=== PATIENT | male | born 1950 | race Caucasian/White ===

== ENCOUNTER → 2017-03-28 15:25 | Outpatient (CLI) | payer BC, SELFPAY ==
[2017-03-28 17:57] LABS: Absolute Lymphocyte Count 0.59 X10^3/ul (0.83-4.51); Absolute Neutrophil Count 3.6 X10^3/uL (2.0-7.7); Basophil# 0.02 X10^3/uL; Basophil% 0.4 % (0-1); Eosinophil# 0.12 X10^3/uL; Eosinophils% 2.5 % (0-5); Hemoglobin 13.8 g/dl (13.0-16.5); Lymphocyte # 0.59 X10^3/ul (4.0); Lymphocyte % 12.3 % (19-41); Mean Corp Hgb Conc 33.7 g/gl (32-36); Mean Corpuscular Hgb 29.7 pg (27.0-32.0); Mean Corpuscular Volume 88.2 fL (80-94); Mean Platelet Vol. 10.7 fl (6.2-12.0); Monocyte# 0.47 X10^3/uL; Monocyte% 9.8 % (0-10); Neutrophil # 3.58 X10^3/uL (2.7-7.7); Neutrophil % 74.8 % (47-70); Platelet Count 216 K/mm3 (150-450); RBC Distribution Width CV 14.3 % (11.6-14.6); RBC Distribution Width SD 45.8 fl (35.1-43.9); Red Blood Count 4.65 M/mm3 (4.6-6.2); White Blood Count 4.8 K/mm3 (4.4-11.0)
[2017-03-28 18:04] LABS: Differential Indicated SCAN CRITERIA MET; POSITIVE COUNT NO; POSITIVE DIFFERENTIAL YES; POSITIVE MORPHOLOGY NO
[2017-03-28 18:15] LABS: ALB/GLOB Ratio 1.2 RATIO (0.9-2.4); AST(SGOT) 16 U/L (15-37); Alanine Aminotransfer ALT/SGPT 29 U/L (16-61); Albumin, Serum 3.7 g/dL (3.2-5.0); Alkaline Phosphatase 62 U/L (45-117); Anion Gap 8 (5-15); BUN 13 mg/dL (7-18); BUN/Creat Ratio 15.6 RATIO (10-20); Calcium,Total 8.6 mg/dL (8.5-10.1); Chloride 106 mmol/L (98-107); Cholesterol 173 mg/dL (200); Creatinine, Serum 0.83 mg/dL (0.70-1.30); EST Glomerular Filtration Rate 98 mL/min (>60); Est Glom Filt Rate - Afr Amer 119 mL/min (>60); Globulin 3.2 g/dL (2.2-4.2); Glucose 82 mg/dL (70-110); High Density Lipoprotein 53 mg/dL; Potassium 3.6 mmol/L (3.5-5.1); Protein, Total 6.9 g/dL (6.4-8.2); Sodium Level 141 mmol/L (136-145); Triglycerides 56 mg/dL; Very Low Density Lipoprotein 11 mg/dL (5-40)
[2017-03-28 18:34] LABS: Platelet Estimate ADEQUATE (ADEQ); Red Cell Morphology NORM C+C NORMAL (NORM C&C)
== END ==
LOC: LAB.FUTURE 09-28 01:56 → BFHLAB 10-25 09:44
PROVIDERS: Family Provider Family Medicine; PCP Family Medicine; Visit Provider Family Medicine
DX: Z00.00 Encounter for general adult medical examination without abnormal findings (principal); Z12.5 Encounter for screening for malignant neoplasm of prostate
CPT/HCPCS: 36415; 80053; 80061; 85025

== ENCOUNTER → 2018-04-24 11:26 | Outpatient (CLI) | payer MEDICARE, OTHER, SELFPAY ==
[2018-04-24 11:35] LABS: Bacteria 0 SEEN /hpf (None Seen); Mucous, Urine 0 SEEN /hpf (<or=2+); Red Blood Cells-Urine 0 SEEN /hpf (0-5); Squamous Epithelial Cells - UA 0 SEEN /hpf (0-5); White Blood Cells 0 SEEN /hpf (0-5)
[2018-04-24 15:18] LABS: Absolute Lymphocyte Count 0.73 X10^3/ul (0.83-4.51); Absolute Neutrophil Count 4.9 X10^3/uL (2.0-7.7); Basophil# 0.02 X10^3/uL; Basophil% 0.3 % (0-1); Eosinophil# 0.03 X10^3/uL; Eosinophils% 0.5 % (0-5); Lymphocyte # 0.73 X10^3/ul (4.0); Lymphocyte % 11.8 % (19-41); Mean Corp Hgb Conc 31.9 g/gl (32-36); Mean Corpuscular Hgb 28.8 pg (27.0-32.0); Mean Corpuscular Volume 90.4 fL (80-94); Mean Platelet Vol. 10.9 fl (6.2-12.0); Monocyte# 0.48 X10^3/uL; Monocyte% 7.8 % (0-10); Neutrophil # 4.92 X10^3/uL (2.7-7.7); Neutrophil % 79.6 % (47-70); Platelet Count 228 K/mm3 (150-450); RBC Distribution Width CV 14.4 % (11.6-14.6); RBC Distribution Width SD 47.4 fl (35.1-43.9); White Blood Count 6.2 K/mm3 (4.4-11.0)
[2018-04-24 15:36] LABS: ALB/GLOB Ratio 1.1 RATIO (0.9-2.4); AST(SGOT) 18 U/L (15-37); Alanine Aminotransfer ALT/SGPT 31 U/L (16-61); Albumin, Serum 3.9 g/dL (3.2-5.0); Alkaline Phosphatase 66 U/L (45-117); Anion Gap 9 (5-15); BUN 14 mg/dL (7-18); BUN/Creat Ratio 14.5 RATIO (10-20); Chloride 107 mmol/L (98-107); Cholesterol 198 mg/dL (200); Creatinine, Serum 0.97 mg/dL (0.70-1.30); EST Glomerular Filtration Rate 83 mL/min (>60); Est Glom Filt Rate - Afr Amer 100 mL/min (>60); Globulin 3.4 g/dL (2.2-4.2); Glucose 92 mg/dL (74-106); High Density Lipoprotein 59 mg/dL; Potassium 3.7 mmol/L (3.5-5.1); Protein, Total 7.3 g/dL (6.4-8.2); Sodium Level 144 mmol/L (136-145); Thyroid Stim Hormone (TSH) 1.44 uIU/mL (0.358-3.74); Triglycerides 98 mg/dL; Very Low Density Lipoprotein 20 mg/dL (5-40)
[2018-04-24 15:40] LABS: POSITIVE COUNT NO; POSITIVE DIFFERENTIAL NO; POSITIVE MORPHOLOGY NO
[2018-04-24 16:06] LABS: Color, Urine Yellow (Yellow); Glucose, Dipstick Normal (Normal); Ketone-Dipstick Negative (Negative); Leukocyte Esterase-Dipstick Negative /ul (Negative); Nitrite-Dipstick Negative (Negative); Occult Blood-Urine 10 /ul (Negative); Protein-Dipstick Negative (Negative); Specific Gravity, Urine 1.015 (1.002-1.030); Urine Bilirubin Dipstick Negative (Negative); Urine Clarity Clear (Clear); Urine Urobilinogen Normal (Normal)
== END ==
PROVIDERS: Family Provider Family Medicine; PCP Family Medicine; Visit Provider Family Medicine
DX: R53.83 Other fatigue (principal); E78.5 Hyperlipidemia, unspecified; R35.1 Nocturia
CPT/HCPCS: 36415; 80053; 80061; 81001; 84443; 85025; 87086

== ENCOUNTER → 2018-08-30 06:23 | Outpatient (CLI) | payer MEDICARE, OTHER, SELFPAY ==
--- NOTE | 2018-08-30 06:32 | MRI_ITS ---
STUDY: MRI BRAIN WITH AND WITHOUT CONTRAST (ATTENTION INTERNAL AUDITORY CANALS - I.A.C.'s) REASON FOR EXAM: Male, 68 years old. ] Tendinitis TECHNIQUE: Standardized multiplanar fat and water weighted pulse sequences were obtained. 17 IV Dotarem was administered for the contrast portion of the examination. COMPARISON: None. FINDINGS: Normal bilateral temporal bones. Normal bilateral internal auditory canals. There is no demonstrated intracanalicular or cisternal vestibular schwannoma (acoustic neuroma). There is no enhancement of the bilateral VIIth or VIIIth cranial nerves. Normal bilateral cochlea, vestibules and semicircular canals. There is moderate cerebral atrophy with widening of the extra-axial spaces and ventricular dilatation. Normal white matter tracts of the supratentorial brain. There is no evidence for recent intracranial ischemia or other cause of cytotoxic edema on diffusion weighted imaging (DWI). Normal bilateral basal ganglia. Normal thalami. Normal flow voids within the major intracranial circulation suggesting patency by spin echo criteria. Normal venous enhancement. There is no enhancing intra-axial or extra-axial abnormality. There is no extra-axial fluid accumulation. Normal sella turcica, pituitary gland, infundibular stalk, optic chiasm and hypothalamus. Normal tectal plate and pineal gland. Normal midbrain, mario and medulla. Normal cerebellum. Normal basal cisterns. No demonstrated orbital abnormality, within the constraints of a routine brain study. Normal visualized paranasal sinuses. Normal calvarium and skull base. Normal visualized soft tissue structures. Normal visualized upper cervical spine. MRI/Brain W/WO Contrast IMPRESSION: Involutional changes of the brain, as described above. No MR evidence of vestibular schwannoma (acoustic neuroma). Electronically Signed: Preston Dela Cruz MD at 8:38 EDT Tel , Service support ,
[2018-08-30 06:55] LABS: EGFR FINGERSTICK > 60.0000 mL/min (>60)
== END ==
PROVIDERS: Family Provider Family Medicine; PCP Family Medicine; Referring Provider Otolaryngology Otolaryngology/Facial Plastic Surgery; Visit Provider Otolaryngology Otolaryngology/Facial Plastic Surgery
DX: H91.21 Sudden idiopathic hearing loss, right ear (principal); H93.11 Tinnitus, right ear
CPT/HCPCS: 70553; A9575

== ENCOUNTER 2018-11-24 06:21 | Day surgery (SDC) | payer MEDICARE, OTHER, SELFPAY ==
[2018-11-24] VITALS (8 sets, daily range): BP systolic 66–137; BP diastolic 49–98; PULSE 55–64; RESP 16; TEMP 35.7–36.4; O2SAT 97–100; BMI 26.2
[2018-11-24] MEDS: Lactated Ringers 1,000 ML 100 ML IV (07:14)
--- NOTE | 2018-11-24 07:30 | COLBX_PTH ---
PATIENT: JOHN ARELLANO LOC: EN U#:[id number] AGE/SX: 68/M ROOM: RE11/24/[address]: Dr. Sanju Beauchamp MD : 1950 BED: DIS: 11/24/2018 SPEC #: [id number] RECD: 11/24/18 10:07 STATUS: JAXON ADE #: [id number] FERN: 11/24/18 07:[address]: Sanju Beauchamp DEPT: SURGICAL PATHOLOGY RECD BY: Venancio Ferrer ENTERED: 11/24/18 11:57 SP TYPE: COLON BX OTHR DR: Dr. Bo Falcon DO Tissues: Transverse colon Procedures: Surgery Specimen Level IV HEADER OPERATION: Colonoscopy - open access (MOD) PRE-OP DIAGNOSIS: Screening TISSUE SUBMITTED: Distal transverse polyp MICROSCOPIC DIAGNOSIS Distal transverse colon polyp, biopsy: Fragments of tubular adenoma. AM:kathy 11/27/18 MICROSCOPIC DESCRIPTION Slides are reviewed. GROSS DESCRIPTION Received in fixative is one container labeled with the patient's name and designated distal transverse polyp. The specimen consists of multiple irregular fragments of light fajardo soft tissue that in aggregate measure 1 x 0.7 x 0.1 cm. The specimen is totally submitted in one cassette. / AM:kathy 11/24/18 TC:5 CPT: 93680
--- NOTE | 2018-11-24 07:34 | HP.PCM_ITS ---
Problem List (1) Personal history of colonic polyps Status: Acute History of Present Illness Date of Admission: 11/24/18 The patient is a 68 year old M who has a personal history of colon polyps. His most recent colonoscopy was October 22, 2016. He had colon polyp x3 and diverti culosis. Colonoscopy and snare polypectomy was performed. He had an 8 mm polyp in the proximal transverse colon and a 4 mm polyp in the mid transverse colon and a 4 mm polyp in the descending colon. Diverticulosis was identified as well. The patient had a previous colonoscopy April 26, 2016 with multiple polypectomies at that time. I recommended a short-term follow-up. The pathology on his most recent polyps were tubular adenoma focal adenomatous change and tubular adenoma. Past Medical History Allergies No Known Allergies Allergy (Verified 11/22/18 09:39) Home Medications: Ambulatory Orders Medication Instructions Recorded Ascorbic Acid [Vitamin C] 500 mg PO DAILY@0800 11/22/18 Calcium Carbonate [Calcium] 600 mg PO DAILY 11/22/18 Cider Vinegar [Apple Cider Vinegar] 600 mg PO DAILY 11/22/18 Cinnamon Bark [Cinnamon] 500 mg PO DAILY 11/22/18 Garlic 1,000 mg PO DAILY 11/22/18 Glucosam/Alonzo-Msm1/C/Nathan/Bosw 1 ea PO DAILY 11/22/18 [Osteo Bi-Flex Caplet] Hydrochlorothiazide [Hctz] 25 mg PO DAILY 11/22/18 Multivitamin [Multiple Vitamins] 1 ea PO DAILY 11/22/18 Potassium 99 mg PO DAILY 11/22/18 Smoking Status: Never smoker Tobacco Use: Non-smoker Review of Systems HEENT: Denies: Difficulty Swallowing Gastrointestinal: Denies: Abdominal Pain, Melena Musculoskeletal: Denies: Leg Pain Endocrine: Denies: Change in Body Habitus VTE Information - Inpt Only VTE Present on Admission: No Patient Problems: Active and Suspected Problems Personal history of colonic polyps (Acute) - Physical Exam General: Alert, Oriented x3, Cooperative, No apparent distress HEENT: Atraumatic Oral: Moist Mucosa Lungs: Clear to auscultation Cardiovascular: Regular rate, Regular Rhythm Abdomen: Bowel Sounds Present, Soft, Non Tender Extremities: No Calf Tenderness Vital Signs Temp Pulse Resp BP Pulse Ox 97.6 F L 58 L 16 136/84 H 100 11/24/18 07:02 11/24/18 07:02 11/24/18 07:02 11/24/18 07:02 11/24/18 07:02 Oxygen Delivery Method Room Air Weight: 187 lb 13.341 oz Body Mass Index (BMI) 26.2 Assessment/Plan All Active Problems Personal history of colonic polyps (Acute) I recommended the patient a surveillance colonoscopy secondary to the number of previous polyps removed. He has had an opportunity to ask and have questions answered. He is aware the potential for biopsy or polypectomy. He presents via our open access program today. Sanju Beauchamp M.D., F.A.C.S.
--- NOTE | 2018-11-24 08:01 | SUR.OPER ---
0758: BP LOW, PT. DIAPHORETIC, P.O. LOW. PT. PLACED IN TRENDELENBERG. O2 TURNED UP. PT. AROUSES WITH VIGOROUS STIMULATION FROM RN.
--- NOTE | 2018-11-24 08:03 | SUR.OPER ---
PT. RESTING QUIETLY. P.O. GOOD. SKIN DRY. BP BETTER.
--- NOTE | 2018-11-24 08:13 | OP.ENDO_ITS ---
11/24/2018 Bo Falcon [address] [place] [address] Re : Colonoscopy procedure for Hayder Kushal Dear Dr. Falcon This procedure was performed on Saturday, November 24, 2018. My impressions and recommendations are as follows: Impressions : - Hemorrhoids found on perianal exam. - Enlarged prostate found on digital rectal exam. - One 9 mm polyp in the distal transverse colon, removed with a hot snare. Resected and retrieved. - Diverticulosis in the sigmoid colon. Recommendations : - Discharge patient to home. - Resume previous diet. - Continue present medications. - Repeat colonoscopy in 3 years for surveillance based on pathology results. - Telephone my office for pathology results in 1 week. My findings are described in the full procedure note, which is enclosed. If I can be of further assistance, please feel free to contact me at Doctor phone number(s): Work: . Sincerely, Sanju Beauchamp MD 11/24/2018 8:12:41 AM This report has been signed electronically.
== END 2018-11-24 08:59 | disposition home or self-care (01) ==
LOC: EN 06:22 → AC 06:23
PROVIDERS: Family Provider Family Medicine; PCP Family Medicine; Referring Provider Family Medicine; Visit Provider Surgery
PROC: 0DJD8ZZ Inspection of Lower Intestinal Tract, Via Natural or Artificial Opening Endoscopic (ICD-10-PCS; CPT 45378; principal; 2018-11-24 07:25)
DX: D12.3 Benign neoplasm of transverse colon (principal); K64.9 Unspecified hemorrhoids; K57.30 Diverticulosis of large intestine without perforation or abscess without bleeding; N40.0 Benign prostatic hyperplasia without lower urinary tract symptoms; Z86.010 Personal history of colon polyps
CPT/HCPCS: 45385; 88305; 99152; 99153; J7120; J1610

== ENCOUNTER → 2018-11-29 07:58 | Outpatient (CLI) | payer MEDICARE, OTHER, SELFPAY ==
[2018-11-24 07:02] VITALS: BMI 26.2
[2018-11-29 10:07] LABS: PSA,Total - Annual Screen 0.02 ng/mL (0.00-4.00); Potassium 4.1 mmol/L (3.5-5.1)
== END ==
PROVIDERS: Family Provider Family Medicine; PCP Family Medicine; Referring Provider Otolaryngology Otolaryngology/Facial Plastic Surgery; Visit Provider Otolaryngology Otolaryngology/Facial Plastic Surgery
DX: Z79.899 Other long term (current) drug therapy (principal); Z12.5 Encounter for screening for malignant neoplasm of prostate
CPT/HCPCS: 36415; 84132; 84153; G0103

== ENCOUNTER → 2020-04-23 08:23 | Outpatient (CLI) | payer MEDICARE, OTHER, SELFPAY ==
[2018-11-24 07:02] VITALS: BMI 26.2
[2020-04-23 09:56] LABS: PSA,Total- Diagnostic 0.41 ng/mL (0.0-4.0)
== END ==
PROVIDERS: PCP Family Medicine; Referring Provider Family Medicine; Visit Provider Family Medicine
DX: Z85.46 Personal history of malignant neoplasm of prostate (principal)
CPT/HCPCS: 36415; 84153

== ENCOUNTER 2020-05-01 11:10 | Outpatient (RCR) | payer MEDICARE, OTHER, SELFPAY ==
[2018-11-24 07:02] VITALS: BMI 26.2
[2020-05-01] MEDS: COVID-19 VACC, MRNA(PFIZER)/PF 30 MCG/0.3 ML SYRINGE IM (09:09)
[2020-05-22] MEDS: COVID-19 VACC, MRNA(PFIZER)/PF 30 MCG/0.3 ML SYRINGE IM (08:50)
== END 2020-08-05 23:59 ==
LOC: IMMUN 11:10
PROVIDERS: PCP Family Medicine; Referring Provider Family Medicine; Visit Provider Family Medicine
DX: Z23 Encounter for immunization (principal)
CPT/HCPCS: 0001A; 0002A; 91300

== ENCOUNTER → 2020-11-04 12:55 | Outpatient (CLI) | payer MEDICARE, OTHER, SELFPAY | PROVIDERS: PCP Family Medicine; Visit Provider Family Medicine | DX: Z20.828 Contact with and (suspected) exposure to other viral communicable diseases (principal) | CPT/HCPCS: 87635; U0005; U0003 ==

== ENCOUNTER → 2022-04-16 | Outpatient (CLI) | payer MEDICARE, OTHER, SELFPAY ==
--- NOTE | 2022-04-16 11:45 | RAD_ITS ---
STUDY: X-RAY - RIGHT HAND REASON FOR EXAM: Male, 72 years old. Injury. Swelling. TECHNIQUE: 3 view(s) of the hand. COMPARISON: None. FINDINGS: Osteopenia. Mild arthrosis of the radiocarpal articulation. Mild arthrosis of the distal radioulnar joint. Mild arthrosis of the radial carpal row. Moderate arthrosis of the first CMC joint. Moderate arthrosis of the MCP and IP joints. Normal soft tissues. RAD/Hand Min 3 Views IMPRESSION: Osteopenia with diffuse osteoarthrosis as described. No acute abnormality, evidence of erosive changes or chondrocalcinosis. Electronically Signed: Mynor Godwin, at 9:43 EST ,
== END | disposition home or self-care (01) ==
LOC: MTRAD 11:43
PROVIDERS: PCP Family Medicine; Referring Provider Family Medicine; Visit Provider Family Medicine
DX: S69.91XA Unspecified injury of right wrist, hand and finger(s), initial encounter (principal)
CPT/HCPCS: 73130

== ENCOUNTER → 2022-08-26 | Outpatient (CLI) | payer MEDICARE, OTHER, SELFPAY ==
--- NOTE | 2022-08-26 12:52 | STEWCON_ITS ---
Reason For Study: PADILLA WITH EXERTION Stress Results Protocol: Kar Protocol WITH DEFINITY Maximum Predicted HR: 150 bpm Target HR: 128 bpm % Maximum Predicted HR: 91 % DurationHeart Rate Stage (mm:ss) (bpm) BP Comment BASELINE 69 140/823 CC DEF STAGE 1 3:00 105 148/88 STAGE 2 3:00 116 160/90 STAGE 3 3:00 136 174/88 RECOVERY 86 138/84 Stress Duration: 9:00 mm:ss Maximum Stress HR: 136 bpm Baseline Echocardiogram Findings Stress Echo Wall motion Data Resting WM Intermediate WM Stress WM Time Measurements MV dec time: 0.23 sec Doppler Measurements & Calculations MV E max el: 55.3 cm/sec MV dec slope: 250.9 cm/sec2 TR max el: 231.9 cm/sec MV A max el: 86.4 cm/sec TR max P.5 mmHg MV E/A: 0.64 ECHO/Stress Test Echo W/Contrast Interpretation Summary Stress echocardiogram. 72-year-old man with a history of dyspnea on exertion. Resting EKG demonstrates sinus rhythm with a rate of 65 bpm and a right bundle branch block resting blood pressure is 140/82 mmHg. The patient exercised according to regular Kar protocol for total duration of 9 minutes completing stage III of the Kar protocol the maximum he art rate attained 142 bpm present 94% of max impacted heart rate the maximum workload was 10.1 metabo lic equivalents. At rest there were no ST or T wave changes noted to suggest ischemia and at peak e xercise no ST or T wave changes were noted suggest ischemia. No angina was noted. Resting echocardiogram. The resting echocardiogram performed with and without D efinity demonstrated preserved left ventricular systolic function estimated EF of 55% at rest increa sing to a peak of 65% with exertion with no wall motion abnormalities noted E/A-wave ratio abnormalit y suggestive of diastolic dysfunction and mild tricuspid regurgitation. Conclusion: Stress echocardiogram demonstrating no evidence of ischemia at a high workload. Ordering Physician: Bo Falcon Referring Physician: Bo Falcon Performed By: Yordan Pantoja RCS
== END | disposition home or self-care (01) ==
PROVIDERS: PCP Family Medicine; Referring Provider Family Medicine; Visit Provider Family Medicine
DX: R06.09 Other forms of dyspnea (principal)
CPT/HCPCS: 93017; 93350; Q9957; A4216; C8928

== ENCOUNTER 2023-07-26 06:30 | Day surgery (SDC) | payer MEDICARE, OTHER, SELFPAY ==
[2023-07-26 06:48] VITALS: BP 135/93; PULSE 67; RESP 16; TEMP 36.1; O2SAT 100; BMI 27.4
[2023-07-26] MEDS: Lactated Ringers 1,000 ML 15 ML IV (06:57)
--- NOTE | 2023-07-26 07:08 | HP.PCM_ITS ---
History and Physical Date of Admission: 07/26/23 Allergies No Known Allergies Allergy (Verified 07/13/23 09:05) Medications ?Medication ?Instructions ?Recorded ?Confirmed ?Type ascorbic acid (vitamin C) 500 mg 500 mg PO DAILY@0800 11/22/18 07/13/23 History tablet calcium carbonate 600 mg PO DAILY 11/22/18 07/13/23 History cinnamon bark 500 mg capsule 500 mg PO DAILY 11/22/18 07/13/23 History glucosamine 750 [id number] 1 ea PO DAILY 11/22/18 07/13/23 History no1 644 mg-C 30 mg-megan 1 mg tablet multivitamin 1 ea PO DAILY 11/22/18 07/13/23 History potassium 99 mg tablet 99 mg PO DAILY 11/22/18 07/13/23 History abiraterone 250 mg tablet (Zytiga) 1,000 mg PO DAILY 06/10/22 07/13/23 History amlodipine 5 mg tablet ea PO 06/10/22 07/13/23 History prednisone 5 mg tablet tablet PO 06/10/22 07/13/23 History leuprolide acetate (6 month) 45 mg 45 mg IM [id number] 07/13/23 07/13/23 History intramuscular syringe kit (Lupron Depot) [facility] Medical History (Updated 06/10/22 @ 08:45 by Elder Moreno MD) Cubital tunnel syndrome on right Right hand pain History of prostate cancer Surgical History (Updated 06/10/22 @ 08:36 by Michelle Garcia) Hx of prostatectomy Family History (Updated 06/10/22 @ 08:36 by Michelle Garcia) Father CancerMother Cancer Social History (Updated 06/10/22 @ 08:36 by Michelle Garcia) Smoking Status: Never smoker alcohol intake: current alcohol intake frequency: 0-2 drinks per day HPI HPI HPI: 73-year-old gentleman. I have most recently assisted him on November 24, 2018 with a colonoscopy. A 9 mm polyp was seen in the distal transverse colon removed with a hot snare. Diverticular disease was identified. Pathology demonstrated tubular adenoma. It is of note that previously on October 22, 2016 I assisted him with a colonoscopy also at that time based upon a personal history of colon polyps. He had a polyp in the proximal transverse colon in the mid transverse colon and at the splenic flexure. All of these were tubular adenomas.. He had a prior colonoscopy April 26, 2016 also with multiple polyps. I recommended to him short-term follow-up at 3 years because of his history of multiple polyps.He returns now to discuss his follow-up colonoscopy. He does have a previous history of prostate cancer in 2016. 3 years ago he had recurrent lesion in his pelvic bone which was radiated and resolved. He denies any bright red blood per rectum or melena. No abdominal pain. He did partially retire and has put on some weight but he otherwise feels well. He presents with his today. ROS General General: Yes weight change; No appetite, fatigue, colon cancer, breast cancer or weakness HEENT HEENT: Yes eye surgery; No difficulty swallowing, eye injury, swollen glands or hoarseness Endo Endocrine: No thyroid disease, diabetes mellitus, thyroid cancer, Hair loss, heat intolerance or cold intolerance Skin Skin: No rash or changing moles Musc Musculoskeletal: Yes back problems; No arthritis, rheumatoid arthritis, gout or joint pain Cardio Cardiovascular: Yes high blood pressure; No murmur, pacemaker, heart disease, atrial fibrillation, heart attack, heart stent, palpitations, shortness of breat with exertion or chest pain Psych Psychiatric: Yes depression and anxiety; No hearing voices Resp Respiratory: No shortness of breath, No sleep apnea, No cough, No COPD, No asthma, No emphysema and No wheezing Gastro Gastrointestinal: No abdominal pain, No nausea or vomiting, No diarrhea, No constipation, No blood in stool, No acid reflux, No hemorrhoids, No ulcers, No gallbladder problem and No black,tarry stools Eligio Hematologic: No blood thinners, No blood disorders, No bleeding, No anemia and No blood clots Neuro Neurologic: No system reviewed and no additional complaints, except as documented, No as per HPI, No abnormal gait, No abnormal hearing, No abnormal movements, No abnormal speech, No behavioral changes, No burning sensations, No confusion, No convulsions, No disequilibrium, No dizziness, No localized weakness, No frequent falls, No headache(s), No lack of coordination, No loss of vision, No memory loss, No numbness, No other visual disturbances, No radicular pain, No restless legs, No sensory deficit, No syncope, No tingling, No tremor(s), No weakness and No other Exam Const General: cooperative, comfortable and no acute distress Nutritional Appearance: overweight [facility] Head: normal to inspection Eyes General: appearance normal, both eyes and all related structures Neck Neck: normal visual inspection Chest Chest palpation & inspection: normal inspection of the chest Resp Effort & Inspection: normal respiratory effort Auscultation: clear to auscultation bilaterally Cardio Rate: regular rate Rhythm: regular rhythm GI Inspection: normal to inspection Auscultation: normal bowel sounds Musc Cervical Spine: normal cervical lordosis Skin General: no rashes or lesions noted Neuro General: patient alert, patient awake and patient oriented x3 Extrem General: no calf tenderness Psych Appearance: grossly normal Assessment and Plan Assessment and Plan (1) Personal history of colonic polyps: Status: Acute Plan: I recommended the patient a colonoscopy with possible biopsy or polypectomy as indicated. He is aware of the technique, benefit, risk, alternatives. He has had an opportunity ask and have questions answered. We will schedule procedure at his discretion. I appreciate the ongoing opportunity of assisting with the surgical care. Copy: Dr. Bo Beauchamp M.D., F.A.C.S I have examined the patient and the H&P has been reviewed. There are no clinical changes since date of exam. Sanju Beauchamp M.D., F.A.C.S.
--- NOTE | 2023-07-26 07:45 | COLBX_PTH ---
PATIENT: JOHN ARELLANO LOC: EN U#:[id number] AGE/SX: 73/M ROOM: RE07/26/[address]: Dr. Sanju Beauchamp MD : 1950 BED: DIS: 07/26/2023 SPEC #: [id number] RECD: 07/26/23 13:15 STATUS: JAXON ADE #: [id number] FERN: 07/26/23 07:[address]: Sanju Beauchamp DEPT: SURGICAL PATHOLOGY RECD BY: Venancio Ferrer ENTERED: 07/26/23 13:16 SP TYPE: COLON BX JUNE DR: Dr. Bo Falcon DO Tissues: A - Transverse colon B - Transverse colon C - Transverse colon D - Transverse colon E - Transverse colon Procedures: Surgery Specimen Level IV HEADER OPERATION: Colonoscopy saline lift, polypectomy, biopsy, ink injection PRE-OP DIAGNOSIS: Personal history of colonic polyps TISSUE SUBMITTED: A- Proximal transverse polyp, B- Proximal transverse polyp biopsy x3, C- Mid transverse polyp- cold snare, possible contaminate fragments, D- Mid transverse polyp- cold snare E- Distal transverse polyp- cold snare MICROSCOPIC DIAGNOSIS A. Proximal transverse colon polyp, biopsy: Fragments of tubular adenoma. B. Proximal transverse colon polyp, biopsy: Fragments of tubular adenoma. C. Mid transverse colon polyp, biopsy: Fragments of tubular adenoma. D. Mid transverse colon polyp, biopsy: Fragments of tubular adenoma. E. Distal transverse colon polyp, biopsy: Fragments of tubular adenoma. SANG/ 07/27/2023 MICROSCOPIC DESCRIPTION Slides are reviewed. GROSS DESCRIPTION A. Received in fixative is one container labeled with the patient's name and designated Proximal transverse polyp. The specimen consists of multiple irregular fragments of light fajardo soft tissue that in aggregate measure 2.0 x 1.0 x 0.2 cm. The specimen is totally submitted in one cassette. B. Received in fixative is one container labeled with the patient's name and designated Proximal transverse polyp. The specimen consists of multiple irregular fragments of light fajardo soft tissue that in aggregate measure 1.0 x 0.5 x 0.1 cm. The specimen is totally submitted in one cassette. C. Received in fixative is one container labeled with the patient's name and designated Mid transverse polyp. The specimen consists of multiple irregular fragments of light fajardo soft tissue that in aggregate measure 2.0 x 1.0 x 0.1 cm. The specimen is totally submitted in one cassette. D. Received in fixative is one container labeled with the patient's name and designated Mid transverse polyp. The specimen consists of multiple irregular fragments of light fajardo soft tissue that in aggregate measure 1.0 x 0.2 x 0.1 cm. The specimen is totally submitted in one cassette. E. Received in fixative is one container labeled with the patient's name and designated Distal transverse polyp. The specimen consists of multiple irregular fragments of light fajardo soft tissue that in aggregate measure 1.5 x 0.6 x 0.1 cm. The specimen is totally submitted in one cassette. SANG/ 07/26/2023 TC:5 CPT:21166m0
[2023-07-26] MEDS: 0.9% Saline Lock 10 ML Syringe IV (08:08)
[2023-07-26 08:32] VITALS: BP 115/76; BP 135/93; PULSE 65; RESP 16; TEMP 36.5; O2SAT 100
[2023-07-26 08:35] VITALS: BP 114/84; BP 135/93; PULSE 66; RESP 16; O2SAT 100
--- NOTE | 2023-07-26 08:37 | OP.COLON_ITS ---
Patient Name: Hayder Fatima Procedure Date: 07/26/2023 7:42 AM Date of : 1950 Age: 73 Procedure: Colonoscopy Indications: High risk colon cancer surveillance: Personal history of colonic polyps Providers: Sanju Beauchamp MD Referring MD: Bo Falcon Medicines: See the Anesthesia note for documentation of the administered medications Patient Profile: Last Colonoscopy: October 2018. Complications: No immediate complications. Procedure: Pre-Anesthesia Assessment: - Prior to the procedure, a History and Physical was performed, and patient medications and allergies were reviewed. The patient's tolerance of previous anesthesia was also reviewed. The risks and benefits of the procedure and the sedation options and risks were discussed with the patient. All questions were answered, and informed consent was obtained. Prior Anticoagulants: The patient has taken no anticoagulant or antiplatelet agents. ASA Grade Assessment: II - A patient with mild systemic disease. After reviewing the risks and benefits, the patient was deemed in satisfactory condition to undergo the procedure. After I obtained informed consent, the scope was passed under direct vision. Throughout the procedure, the patient's blood pressure, pulse, and oxygen saturations were monitored continuously. The Colonoscope was introduced through the anus and advanced to the cecum, identified by appendiceal orifice and ileocecal valve. The colonoscopy was somewhat difficult. The patient tolerated the procedure well. The quality of the bowel preparation was good. The ileocecal valve and the appendiceal orifice were photographed. Scope In: 7:49:24 AM Scope Withdrawal Time 0 hours 29 minutes 10 seconds Scope Out: 8:26:39 AM Total Procedure Duration Time 0 hours 37 minutes 15 seconds Findings: Hemorrhoids were found on perianal exam. A 25 mm polyp was found in the proximal transverse colon. The polyp was sessile. The polyp was removed with a saline injection-lift technique using a cold snare. Polyp resection was incomplete, and the resected tissue was partially retrieved. To prevent bleeding post-intervention, two hemostatic clips were successfully placed. There was no bleeding at the end of the procedure. Area was tattooed with an injection of 3 mL of Cherelle ink. Three sessile polyps were found in the proximal transverse colon. The polyps were 3 to 5 mm in size. These polyps were removed with a cold biopsy forceps. Resection and retrieval were complete. A 9 mm polyp was found in the mid transverse colon. The polyp was sessile. The polyp was removed with a cold snare. Resection and retrieval were complete. A 6 mm polyp was found in the mid transverse colon. The polyp was sessile. The polyp was removed with a cold snare. Resection and retrieval were complete. Area was tattooed with an injection of 2 mL of Cherelle ink. A 6 mm polyp was found in the distal transverse colon. The polyp was sessile. The polyp was removed with a cold snare. Resection and retrieval were complete. Multiple diverticula were found in the sigmoid colon and descending colon. Impression: - Hemorrhoids found on perianal exam. - One 25 mm polyp in the proximal transverse colon, removed using injection-lift and a cold snare. Polyp resection was incomplete, and the resected tissue was partially retrieved. Clips were placed. Tattooed. - Three 3 to 5 mm polyps in the proximal transverse colon, removed with a cold biopsy forceps. Resected and retrieved. - One 9 mm polyp in the mid transverse colon, removed with a cold snare. Resected and retrieved. - One 6 mm polyp in the mid transverse colon, removed with a cold snare. Resected and retrieved. Tattooed. - One 6 mm polyp in the distal transverse colon, removed with a cold snare. Resected and retrieved. - Diverticulosis in the sigmoid colon and in the descending colon. Recommendation: - Discharge patient to home. - Resume previous diet. - Continue present medications. - Repeat colonoscopy in 1 year for surveillance based on pathology results. - Return to my office in 3 days. The proximal transverse colon largest polyp was incompletely resected. Clips and Cherelle ink performed at that spot. Cherelle ink additionally performed in the more mid transverse colon encompassing the vast majority of the polyps between the 2 inked areas. 1 additional polyp was found in the distal transverse colon it was completely resected. Procedure Code(s): --- Professional --- 27680, Colonoscopy, flexible; with removal of tumor(s), polyp(s), or other lesion(s) by snare technique 62639, 59, Colonoscopy, flexible; with biopsy, single or multiple 40150, Colonoscopy, flexible; with directed submucosal injection(s), any substance Diagnosis Code(s): --- Professional --- D12.3, Benign neoplasm of transverse colon (hepatic flexure or splenic flexure) Z86.010, Personal history of colonic polyps K64.9, Unspecified hemorrhoids K57.30, Diverticulosis of large intestine without perforation or abscess without bleeding CPT copyright 2021 [employer]. All rights reserved. The codes documented in this report are preliminary and upon medical insurance coder review may be revised to meet current compliance requirements. Sanju Beauchamp MD 07/26/2023 8:36:31 AM This report has been signed electronically. Number of Addenda: 0 Note Initiated On: 07/26/2023 7:42 AM
--- NOTE | 2023-07-26 08:37 | OP.CCLET_ITS ---
07/26/2023 Bo Falcon [address] [facility] [place] [address] Re : Colonoscopy procedure for Hayder Fatima Dear Dr. Falcon This procedure was performed on Wednesday, July 26, 2023. My impressions and recommendations are as follows: Impressions : - Hemorrhoids found on perianal exam. - One 25 mm polyp in the proximal transverse colon, removed using injection-lift and a cold snare. Polyp resection was incomplete, and the resected tissue was partially retrieved. Clips were placed. Tattooed. - Three 3 to 5 mm polyps in the proximal transverse colon, removed with a cold biopsy forceps. Resected and retrieved. - One 9 mm polyp in the mid transverse colon, removed with a cold snare. Resected and retrieved. - One 6 mm polyp in the mid transverse colon, removed with a cold snare. Resected and retrieved. Tattooed. - One 6 mm polyp in the distal transverse colon, removed with a cold snare. Resected and retrieved. - Diverticulosis in the sigmoid colon and in the descending colon. Recommendations : - Discharge patient to home. - Resume previous diet. - Continue present medications. - Repeat colonoscopy in 1 year for surveillance based on pathology results. - Return to my office in 3 days. The proximal transverse colon largest polyp was incompletely resected. Clips and Cherelle ink performed at that spot. Cherelle ink additionally performed in the more mid transverse colon encompassing the vast majority of the polyps between the 2 inked areas. 1 additional polyp was found in the distal transverse colon it was completely resected. My findings are described in the full procedure note, which is enclosed. If I can be of further assistance, please feel free to contact me at Doctor phone number(s): Work: . Sincerely, Sanju Beauchamp MD 07/26/2023 8:36:31 AM This report has been signed electronically.
[2023-07-26 08:40] VITALS: BP 116/85; BP 135/93; PULSE 65; RESP 16; O2SAT 100
[2023-07-26 08:45] VITALS: BP 129/81; BP 135/93; PULSE 62; RESP 16; TEMP 36.5; O2SAT 100
--- NOTE | 2023-07-26 09:05 | SUR.PHASEII ---
pt states his lower adomen feels a little bloated feels soft to this nurse. encouraed patient to move around and pass gas. will continue to monitor.
--- NOTE | 2023-07-26 09:18 | SUR.PHASEII ---
PATIENT RANG OUT TO SAY HE WAS READY TO GO. THIS NURSE SAW ON OUR DOCUMENTATION TO ASK PATIENT ABOUT HOW IS BELLY FELT. THIS NURSE ASKED THE PATIENT AND HE SAID THAT IT IS NOT FEELING THAT TIGHT AND I FEEL BETTER UP WALKING. I ALSO ASKED HIM IF DELMA RN WAS IN ALREADY TO ASSESS HIS BELLY. PATIENT CONTINUALLY TOLD THIS NURSE THAT HIS ABDOMEN FELT BETTER. HE REFUSED TO BE TAKEN OUT BY A WHEELCHAIR STATING IT FEELS BETTER WHEN I AM WALKING I WALKED THE PATIENT ALONG WITH HIS TO THE MAIN ENTRANCE AREA PRIOR TO DISCHARGE WITHOUT DIFFICULTY. I ENCOURAGED HIM TO KEEP MOVING AT HOME TO FACILITATE GAS REMOVAL AND CALL IF HE HAS ANY ISSUES.
[2023-07-26 09:22] VITALS: BP 135/93
== END 2023-07-26 09:24 | disposition home or self-care (01) ==
LOC: EN 06:30 → AC 06:31
PROVIDERS: PCP Family Medicine; Referring Provider Family Medicine; Visit Provider Surgery
PROC: 0DJD8ZZ Inspection of Lower Intestinal Tract, Via Natural or Artificial Opening Endoscopic (ICD-10-PCS; CPT 45378; principal; 2023-07-26 07:40)
DX: Z12.11 Encounter for screening for malignant neoplasm of colon (principal); K57.30 Diverticulosis of large intestine without perforation or abscess without bleeding; Z86.010 Personal history of colon polyps; K63.5 Polyp of colon; Z85.46 Personal history of malignant neoplasm of prostate; Z90.79 Acquired absence of other genital organ(s); K64.4 Residual hemorrhoidal skin tags
CPT/HCPCS: 45380; 45381; 45385; 88305; J7120; A4216; A4648; J2405

== ENCOUNTER 2023-11-20 00:50 | Emergency (ER) | payer MEDICARE, OTHER, SELFPAY ==
[2023-11-20 00:51] VITALS: BP 172/104; PULSE 84; RESP 16; TEMP 36.7; O2SAT 99; BMI 28.9
--- NOTE | 2023-11-20 01:00 | EX.ED.DYSGE1 ---
HPI History of Present Illness Chief Complaint: Allergic Reaction Informant: patient and family Narrative Narrative: 73-year-old male was stung by a wasp right between his eyes and midface nasal bridge about 9 hours ago. He has been having soreness, stinging, redness, swelling, and pruritus throughout his face as a result. He took Benadryl about 5 hours ago as well as Zyrtec. Does not think it really helped. Some trouble going to sleep because rolling over and laying on his face which is sore. He denies any throat swelling, tongue swelling, trouble breathing or swallowing, syncope or lightheadedness, dyspnea, peripheral edema, or any other systemic symptoms. Has never had reaction to bees in the past. He has a history of prostate cancer and he is on prednisone 5 mg daily in addition to other medications. No blood thinners. [facility] Medical History Wears hearing aid Loss of hearing Wears contact lenses Wears glasses Cancer History of steroid therapy Prostate disease Diverticulosis Non-smoker History of echocardiogram History of stress test Cubital tunnel syndrome on right Right hand pain History of prostate cancer Home Medications ?Medication ?Instructions ?Recorded ?Last Taken ?Type ascorbic acid (vitamin C) 500 mg 500 mg PO DAILY@0800 11/22/18 Unknown History tablet calcium carbonate 1,200 mg PO DAILY 11/22/18 Unknown History cinnamon bark 500 mg capsule 500 mg PO DAILY 11/22/18 Unknown History glucosamine 750 [id number] 1 ea PO DAILY 11/22/18 Unknown History no1 644 mg-C 30 mg-megan 1 mg tablet multivitamin 1 ea PO DAILY 11/22/18 Unknown History potassium 99 mg tablet 99 mg PO DAILY 11/22/18 Unknown History amlodipine 5 mg tablet 5 mg PO DAILY 06/10/22 07/26/23 05:00 History prednisone 5 mg tablet 5 mg PO DAILY 06/10/22 Unknown History leuprolide acetate (6 month) 45 mg 45 mg IM [id number] 07/13/23 Unknown History intramuscular syringe kit (Lupron Depot) magnesium 200 mg tablet 200 mg PO DAILY 07/20/23 Unknown History abiraterone 500 mg tablet 2,000 mg PO Q6H 11/20/23 Unknown History prednisone 10 mg tablet 10 mg PO DAILY #10 TABLETS 11/20/23 Unknown Rx Allergy/AdvReac Type Severity Reaction Status Date / Time No Known Allergies Allergy Verified 07/29/23 10:13 Family History Father Cancer Mother Cancer Surgical History History of colonoscopy Hx of prostatectomy Social History Smoking Status: Never smoker alcohol intake: current alcohol intake frequency: 0-2 drinks per day ROS ROS ED Eyes Eyes: Denies change in vision ENT ENT ED: Reports as per HPI and facial pain; Denies rhinorrhea, sore throat, throat swelling or tongue swelling Cardiovascular Cardiovascular: Denies leg edema, lightheadedness or syncope Respiratory/Chest Respiratory/Chest: Denies dyspnea Musculoskeletal Musculoskeletal: Denies back pain or neck pain Integumentary Reports pruritus and rash Neurologic Neurologic: Reports headache(s); Denies paresthesias or weakness EXAM Physical Exam Const Vital Signs: 11/20/23 00:51 Temperature 98.0 F Temperature Source Oral Pulse Rate 84 Respiratory Rate 16 Blood Pressure 172/104 H Blood Pressure Mean 126 Pulse Ox 99 Oxygen Delivery Method Room Air Positive well nourished and well developed General Appearance ED: well developed and NAD HEENT Reports moist mucous membranes HEENT Narrative: Diffuse facial swelling. The entire face throughout the midface, symmetric bilaterally and periorbital, is erythematous and warm, the only area that is tender is where he was stung, upper nasal bridge between his eyes. There is no abscess here. Tongue and throat are normal. Posterior oropharynx is easily visible no trismus. No stridor or dysphonia. Eyes PERRL and EOMs intact bilaterally Eyes Narrative: No pain with active ocular movements. No entrapment. No scleral or conjunctival injection. Neck no lymphadenopathy and supple Resp normal respiratory effort and clear to auscultation bilaterally Extremity normal to inspection General Extremety ED: Negative for edema General Extremity: Negative for edema Neuro oriented x3, CN's II-XII intact bilaterally, no sensory deficits noted and gait normal Motor Exam: strength 5/5 throughout Psych mental status grossly normal Skin Skin Narrative: Diffuse erythema face see above. No other lesions. MDM MDM MDM Narrative Medical decision making narrative: Patient is nontoxic, his blood pressure is high not low, and he is not tachycardic. This is not an anaphylactoid or anaphylactic reaction. He looks like he has a dramatic localized reaction, most likely because of the location where he was stung. He is not in danger right now. We discussed signs and symptoms of that and reasons to return for epinephrine but right now it is not indicated. Nurses place an IV. Him given him a dose of IV Benadryl, and going to boost him up to 40 mg of steroids for 2 days first dose given here and tapering back down over a week back down to his 5 mg and I think that should help. Discharge Plan Triage Chief Complaint: Allergic Reaction ED Provider: Milo Pichardo Dx/Rx/DC Orders Clinical Impression: Local reaction to hymenoptera sting Instructions: ED Insect Sting, Local Reaction Prescriptions: New prednisone 10 mg tablet 10 mg PO DAILY Qty: 10 0RF Rx Instructions: 4 po qd x 1 days, 2 po qd x 2 days, 1 po qd x 2 days Continued amlodipine 5 mg tablet 5 mg PO DAILY Patient Comments: TAKE 1 TABLET BY MOUTH EVERY DAY Lupron Depot (6 Month) 45 mg syringe kit 45 mg IM [id number] multivitamin 1 EACH tablet 1 ea PO DAILY calcium carbonate 600 MG tablet 1,200 mg PO DAILY potassium 99 MG tablet 99 mg PO DAILY ascorbic acid (vitamin C) 500 MG tablet 500 mg PO DAILY@0800 cinnamon bark 500 MG capsule 500 mg PO DAILY [id number] 1 EACH tablet 1 ea PO DAILY magnesium 200 mg tablet 200 mg PO DAILY abiraterone 500 mg tablet 2,000 mg PO Q6H Held prednisone 5 mg tablet 5 mg PO DAILY Hold Instructions: until new prednisone prescription finished; then resume at 5mg next day Primary Care Provider: Bo Falcon Referrals: Bo Falcon DO [Primary Care Provider] - As Needed Print Language: Upper Sorbian Disposition Disposition: Home, Self Care
[2023-11-20] MEDS: predniSONE 20 MG Tablet 40 MG PO (01:05)
[2023-11-20] MEDS: DiphenhydrAMINE 50 MG/ML Syringe 25 MG IV (01:05)
[2023-11-20 01:07] VITALS: BP 173/102; PULSE 78; RESP 16; TEMP 36.9; O2SAT 100
== END 2023-11-20 01:26 | disposition home or self-care (01) ==
PROVIDERS: Emergency Provider Emergency Medicine; PCP Family Medicine; Visit Provider Emergency Medicine
DX: T78.49XA Other allergy, initial encounter (principal); Z85.46 Personal history of malignant neoplasm of prostate; Z90.79 Acquired absence of other genital organ(s)
CPT/HCPCS: 96374; 99283; A4216

== ENCOUNTER → 2024-07-11 | Outpatient (CLI) | payer MEDICARE, OTHER, SELFPAY ==
[2024-07-11 07:12] LABS: Cholesterol 205 mg/dL (<=200); High Density Lipoprotein 50 mg/dL; Low Density Lipoprotein Calc. 133 mg/dL; Triglycerides 114 mg/dL; Very Low Density Lipoprotein 23 mg/dL (5-40); cholesterol:hdl ratio screen 4.13
== END | disposition home or self-care (01) ==
LOC: LAB 05:56
PROVIDERS: PCP Family Medicine; Referring Provider Family Medicine; Visit Provider Family Medicine
DX: I10 Essential (primary) hypertension (principal)
CPT/HCPCS: 36415; 80061